=== PATIENT | female | born 1945 | race Caucasian/White ===

== ENCOUNTER 2018-01-29 02:45 | Observation (INO) | payer MEDICARE ==
[~2018-01-29] VITALS: Ht 149.9 cm; Wt 71.7 kg
[2018-01-29] MEDS ORDERED: METOPROLOL TART25 MG PO (02:56)
[2018-01-29] MEDS ORDERED: METFORMIN HCL500 MG PO (02:56)
[2018-01-29] MEDS ORDERED: HYDROCHLOROTHIA25 MG PO (02:56)
[2018-01-29] MEDS ORDERED: CLOPIDOGREL75 MG PO (02:56)
[2018-01-29] MEDS ORDERED: IRBESARTAN150 MG PO (02:56)
[2018-01-29] MEDS ORDERED: ATORVASTATIN CA20 MG PO (02:56)
[2018-01-29 03:40] LABS: BASOPHILS # (AUTO) 0.1 (0.0-0.1); BASOPHILS % 1.1 % (0.0-1.0); EOSINOPHILS # (AUTO) 0.2 (0.0-0.4); HEMOGLOBIN 13.4 g/dL (12.0-16.0); LYMPHOCYTES # (AUTO) 1.7 (1.0-3.2); MEAN CORPUSCULAR HEMOGLOBIN 31.5 pg (28-32); MEAN CORPUSCULAR HGB CONC 34.4 g/dL (31-35); MEAN CORPUSCULAR VOLUME 91.8 fL (81-99); MONOCYTES # (AUTO) 0.6 (0.2-0.8); MONOCYTES % 10.2 % (4.4-11.3); NEUTROPHILS # (AUTO) 2.9 (2.1-6.9); NEUTROPHILS % 54.5 % (38.7-80.0); PLATELET COUNT 302 x10e3/uL (140-360); RED BLOOD COUNT 4.25 x10e6/uL (3.6-5.1)
[2018-01-29 03:45] LABS: INR 1.03; PROTHROMBIN TIME 12.7 seconds (11.9-14.5)
[2018-01-29 03:46] LABS: PARTIAL THROMBOPLASTIN TIME 29.5 seconds (23.8-35.5)
[2018-01-29 03:54] LABS: ALANINE AMINOTRANSFERASE 28 IU/L (0-55); ALBUMIN/GLOBULIN RATIO 1.2 (0.8-2.0); ALKALINE PHOSPHATASE 48 IU/L (40-150); ANION GAP 14.9 mmol/L (8-16); BLOOD UREA NITROGEN 15 mg/dL (7-26); BUN/CREATININE RATIO 20 (6-25); CALCIUM 9.8 mg/dL (8.4-10.2); CARBON DIOXIDE 26 mmol/L (22-29); CHLORIDE 96 mmol/L (98-107); CREATINE KINASE 133 IU/L (29-168); CREATININE, SERUM 0.75 mg/dL (0.57-1.11); EST GLOMERULAR FILTRATION RATE > 60 ML/MIN (60-); GLUCOSE 151 mg/dL (74-118); MAGNESIUM 1.8 MG/DL (1.3-2.1); POTASSIUM 3.9 mmol/L (3.5-5.1); SODIUM 133 mmol/L (136-145)
--- NOTE | 2018-01-29 03:59 | Diagnostic Imaging Report ---
CHEST SINGLE (PORTABLE), 01/29/2018 2:58 AM Technique: CHEST SINGLE (PORTABLE) Comparison: None available. Clinical history: Dizziness Findings: Normal cardiomediastinal silhouette for technique. Aortic calcifications. Suggestion of retrocardiac opacity. No pleural effusion or pneumothorax. Impression: Suggestion of retrocardiac opacity. Recommend upright PA and lateral for better evaluation. Signed by: Dr Elizabeth Coyle MD on 01/29/2018 3:55 AM
[2018-01-29 04:17] LABS: THYROID STIMULATING HORMONE 1.688 uIU/mL (0.350-4.940)
[2018-01-29 04:38] LABS: CLARITY,URINE SL CLOUDY (CLEAR); COLOR,URINE YELLOW (YELLOW)
[2018-01-29 04:39] LABS: BILIRUBIN,URINE NEGATIVE (NEGATIVE); KETONES,URINE NEGATIVE (NEGATIVE); LEUKOCYTE ESTERASE ,URINE NEGATIVE (NEGATIVE); NITRITE,URINE NEGATIVE (NEGATIVE); PROTEIN,URINE DIPSTICK NEGATIVE (NEGATIVE); URINE UROBILINOGEN 0.2 mg/dL (0.2 - 1)
[2018-01-29 04:40] LABS: AMORPHOUS SEDIMENT,URINE MANY (FEW); BACTERIA,URINE FEW /HPF; EPITHELIAL CELLS,URINE RARE /LPF; RBC,URINE 0-5 /HPF (0-5); TRANSITIONAL EPI CELLS,URINE RARE; WBC,URINE (MAN) 0-5 /HPF (0-5)
--- NOTE | 2018-01-29 05:00 | Diagnostic Imaging Report ---
EXAMINATION: Head CT without contrast. HISTORY:Dizziness. COMPARISON:None. TECHNIQUE: Multidetector axial images were obtained from the foramen magnum to the vertex without contrast. The images were reconstructed using brain and bone algorithms. Thin section brain images were reformatted into coronal and sagittal planes. Intravenous contrast: None IMAGE QUALITY: Acceptable. FINDINGS: Skull/scalp: No lytic or blastic. lesions. No surgical changes. Parenchyma: Nonspecific few, scattered patchy white matter hypodensity are likely related to small vessel ischemic changes. No acute hemorrhage, mass or acute major vascular territorial infarct. Arteries: No density suggestive of thrombosis. Dural sinuses: No abnormal density suggestive of thrombosis. Ventricles: No hydrocephalus or displacement. Extra-axial spaces: No abnormal density. Brain volume: Generalized age-related cerebral volume loss. Craniocervical junction: No mass, Chiari malformation, or basilar invagination. Sella: No mass. Paranasal/mastoid sinuses: Imaged portions unremarkable. IMPRESSION: No acute intracranial abnormality. Mild supratentorial white matter microvascular ischemic changes. Generalized age-related cerebral volume loss. Signed by: Dr. Casi Obando M.D. on 01/29/2018 4:56 AM
--- NOTE | 2018-01-29 05:19 | Diagnostic Imaging Report ---
CHEST 2 VIEWS, Technique: CHEST 2 VIEWS Comparison: Same day Clinical history: \S\? RETROCARDIAC OPACITY ON AP CXR, NEEDS PA/LAT \S\[id number] \S\457 DISCUSSION: Normal cardiomediastinal silhouette. Aortic calcifications. No consolidation, edema, pleural effusion or pneumothorax. IMPRESSION: No acute abnormality. Previously questioned retrocardiac opacity with artifactual related to portable technique. Signed by: Dr Elizabeth Coyle MD on 01/29/2018 5:15 AM
[2018-01-29] MEDS ORDERED: FAMOTIDINE 20 MG/2 ML VIAL IV SCH (06:15)
[2018-01-29] MEDS ORDERED: DEXTROSE 50% SYRINGE 50 ML IV PRN (06:15)
--- OUTSIDE RECORDS SUMMARY | 2018-01-29 06:24 | XMS REPORT ---
[facility] Address Unknown Phone Unavailable Care Team Providers Care [employer] Engineer Name Role Phone CYNDY MCADAMS Unavailable Unavailable Problems This patient has no known problems. Allergies, Adverse Reactions, Alerts This patient has no known allergies or adverse reactions. Medications This patient has no known medications. Results Test Description Test Time Test Comments Text Results Atomic Results Result Comments CHEST 2 VIEWS [place] [address] Patient Name: JEAN PAUL KIM MR #: [id number] : 1945 Age/Sex: 72/F Req #: [id number] Adm Physician: Ordered by: CYNDY MCADAMS MD Report #: [id number] Location: ER Room/Bed: Procedure: [id number] DX/CHEST 2 VIEWS Exam Date: 01/29/18 Exam Time: 0458 REPORT STATUS: Signed CHEST 2 VIEWS, Technique: CHEST 2 VIEWS Comparison: Same day Clinical history: S ? RETROCARDIAC OPACITY ON AP CXR, NEEDS PA/LAT DISCUSSION: Normal cardiomediastinal silhouette. Aortic calcifications. No consolidation, edema, pleural effusion or pneumothorax. IMPRESSION: No acute abnormality. Previously questioned retrocardiac opacity with artifactual related to portable technique. Signed by: Dr Kyung Coyle MD on 01/29/2018 5:15 AM Dictated By: KYUNG COYLE MD 4 Transcribed By: KVNG on 01/29/18514 COPY TO: CYNDY MCADAMS MD CHEST SINGLE (PORTABLE) [place] [address] Patient Name: JEAN PAUL KIM MR #: [id number] : 1945 Age/Sex: 72/F Req #: [id number] Adm Physician: Ordered by: CYNDY MCADAMS MD Report #: [id number] Location: ER Room/Bed: Procedure: [id number] DX/CHEST SINGLE (PORTABLE) Exam Date: 01/29/18 Exam Time: 328 REPORT STATUS: Signed CHEST SINGLE ( PORTABLE), 01/29/2018 2:58 AM Technique: CHEST SINGLE (PORTABLE) Comparison: None available. Clinical history: Dizziness Findings: Normal cardiomediastinal silhouette for technique. Aortic calcifications. Suggestion of retrocardiac opacity. No pleural effusion or pneumothorax. Impression: Suggestion of retrocardiac opacity. Recommend upright PA and lateral for better evaluation. Signed by: Dr Kyung Coyle MD on 2017 3:55 AM Dictated By: KYUNG COYLE MD 4 Transcribed By: KVNG on 01/29/18354 COPY TO: CYNDY MCADAMS MD CT BRAIN WO [place] [address] Patient Name: JEAN PAUL KIM MR #: [id number] : 1945 Age/Sex: 72/F Req #: [id number] Adm Physician: Ordered by: CYNDY MCADAMS MD Report #: [id number] Location: Room/Bed: Procedure: [id number] CT/CT BRAIN WO Exam Date: 01/29/18 Exam Time: 323 REPORT STATUS: Signed EXAMINATION: Head CT without contrast. HISTORY:Dizziness. COMPARISON:None. TECHNIQUE: Multidetector axial images were obtained from the foramen magnum to the vertex without contrast. The images were reconstructed using brain and bone algorithms. Thin section brain images were reformatted into coronal and sagittal planes. Intravenous contrast: None IMAGE QUALITY: Acceptable. FINDINGS: Skull/scalp: No lytic or blastic. lesions. No surgical changes. Parenchyma: Nonspecific few, scattered patchy white matter hypodensity are likely related to small vessel ischemic changes. No acute hemorrhage, mass or acute major vascular territorial infarct. Arteries: No density suggestive of thrombosis. Dural sinuses: No abnormal density suggestive of thrombosis. Ventricles: No hydrocephalus or displacement. Extra- axial spaces: No abnormal density. Brain volume: Generalized age- related cerebral volume loss. Craniocervical junction: No mass, Chiari malformation, or basilar invagination. Sella: No mass. Paranasal/ mastoid sinuses: Imaged portions unremarkable. IMPRESSION: No acute intracranial abnormality. Mild supratentorial white matter microvascular ischemic changes. Generalized age-related cerebral volume loss. Signed by: Dr. Casi Obando M.D. on 01/29/2018 4:56 AM Dictated By: CASI OBANDO MD 5 Transcribed By: KVNG on 01/29/18455 COPY TO: CYNDY MCADAMS MD
[2018-01-29 07:59] VITALS: BP 132/68
[2018-01-29] MEDS: INSULIN REGULAR, HUMAN 100 UNIT/1 ML 3ML VIAL SQ SCH ×2 (08:30→11:30)
[2018-01-29 10:03] VITALS: BP 132/68
[2018-01-29 10:15] VITALS: BP 132/68
[2018-01-29 11:21] LABS: CREATINE KINASE 123 IU/L (29-168)
[2018-01-29 11:28] VITALS: BP 129/55
--- NOTE | 2018-01-29 11:29 | Diagnostic Imaging Report ---
Examination: MRI BRAIN WITHOUT CONTRAST History: Dizziness; vertigo; headache. Comparison studies: Head CT dated 01/29/2018. Technique: Sagittal T2; axial DWI, FLAIR, GRE or SWI, T1, Coronal FLAIR. Intravenous contrast: None Findings: Scalp: No abnormal signal. No masses. Bone marrow: Normal in signal intensity. Brain volume: Mild volume loss. Ventricles: No hydrocephalus. Extra-axial spaces: No abnormalities. Parenchyma: There are patchy and confluent areas of T2/FLAIR hyperintensity in the periventricular and subcortical and pontine white matter, nonspecific. No masses, hemorrhage, or acute vascular insults. Suprasellar and sellar region: No abnormalities. Craniocervical junction: No abnormalities. The foramen magnum is patent. No Chiari malformations. Vessels: Normal flow-voids in the arteries and sinuses. Additional findings: Bilateral slitlike lenses. Disc osteophyte complex at C3-C4. IMPRESSION: 1. No acute abnormalities. 2. Unchanged mild chronic microvascular ischemic change and volume loss when compared to prior head CT dated 01/29/2018 and when accounting for differences in technique. Signed by: Dr. Camryn Han M.D. on 01/29/2018 11:26 AM
== END 2018-01-29 14:28 | disposition home or self-care (01) ==
LOC: ER 02:45 → ERHOLD 06:21 → IMCU 07:10
PROVIDERS: ADMIT Internal Medicine; ATTEND Internal Medicine
DX: H81.23 Vestibular neuronitis, bilateral (principal); I10 Essential (primary) hypertension; E11.9 Type 2 diabetes mellitus without complications; I25.10 Atherosclerotic heart disease of native coronary artery without angina pectoris; Z95.5 Presence of coronary angioplasty implant and graft; E78.5 Hyperlipidemia, unspecified
CPT/HCPCS: 36415; 70450; 70551; 71045; 71046; 80053; 81001; 82550; 82553; 82948; 83735; 84443; 84484; 85025; 85610; 85730; 87086; 93005; 93880; 96372; 99284; G0378

== ENCOUNTER 2018-02-18 07:10 | Observation (INO) | payer MEDICARE ==
[~2018-02-18] VITALS: Ht 149.9 cm; Wt 71.2 kg
[~2018-02-18 07:10] MED LIST: ATORVASTATIN CA20 MG PO; CLOPIDOGREL75 MG PO; HYDROCHLOROTHIA25 MG PO; IRBESARTAN150 MG PO; METFORMIN HCL500 MG PO; METOPROLOL TART25 MG PO
[2018-02-18] MEDS ORDERED: NITROGLYCERIN 2% OINT 1 GM PKT TOP STA (07:39)
[2018-02-18] MEDS ORDERED: ASPIRIN 81 MG CHEW TAB PO STA (07:39)
[2018-02-18 07:50] LABS: BASOPHILS # (AUTO) 0.1 (0.0-0.1); EOSINOPHILS # (AUTO) 0.2 (0.0-0.4); EOSINOPHILS % 2.9 % (0.0-6.0); HEMATOCRIT 35.9 % (34.2-44.1); HEMOGLOBIN 12.4 g/dL (12.0-16.0); LYMPHOCYTES # (AUTO) 3.5 (1.0-3.2); MEAN CORPUSCULAR HEMOGLOBIN 31.6 pg (28-32); MEAN CORPUSCULAR HGB CONC 34.5 g/dL (31-35); MEAN CORPUSCULAR VOLUME 91.3 fL (81-99); MONOCYTES # (AUTO) 0.7 (0.2-0.8); MONOCYTES % 10.1 % (4.4-11.3); NEUTROPHILS # (AUTO) 2.7 (2.1-6.9); NEUTROPHILS % 36.7 % (38.7-80.0); PLATELET COUNT 261 x10e3/uL (140-360); RED BLOOD COUNT 3.93 x10e6/uL (3.6-5.1)
[2018-02-18 07:54] LABS: CLARITY,URINE CLEAR (CLEAR); COLOR,URINE YELLOW (YELLOW); LEUKOCYTE ESTERASE ,URINE NEGATIVE (NEGATIVE); NITRITE,URINE NEGATIVE (NEGATIVE); PROTEIN,URINE DIPSTICK NEGATIVE (NEGATIVE)
[2018-02-18 07:55] LABS: BILIRUBIN,URINE NEGATIVE (NEGATIVE); KETONES,URINE TRACE (NEGATIVE); URINE UROBILINOGEN 0.2 mg/dL (0.2 - 1)
[2018-02-18] MEDS ORDERED: LOW DOSE ASPIRI81 MG PO (08:03)
[2018-02-18 08:06] LABS: ALANINE AMINOTRANSFERASE 24 IU/L (0-55); ALBUMIN 3.6 g/dL (3.5-5.0); ALBUMIN/GLOBULIN RATIO 1.3 (0.8-2.0); ALKALINE PHOSPHATASE 48 IU/L (40-150); ANION GAP 11.5 mmol/L (8-16); BACTERIA,URINE FEW /HPF; BLOOD UREA NITROGEN 13 mg/dL (7-26); BUN/CREATININE RATIO 18 (6-25); CALCIUM 9.1 mg/dL (8.4-10.2); CARBON DIOXIDE 28 mmol/L (22-29); CHLORIDE 98 mmol/L (98-107); CREATINE KINASE 117 IU/L (29-168); CREATININE, SERUM 0.72 mg/dL (0.57-1.11); EPITHELIAL CELLS,URINE RARE /LPF; EST GLOMERULAR FILTRATION RATE > 60 ML/MIN (60-); GLUCOSE 124 mg/dL (74-118); POTASSIUM 3.5 mmol/L (3.5-5.1); RBC,URINE 0-5 /HPF (0-5); SODIUM 134 mmol/L (136-145); TRANSITIONAL EPI CELLS,URINE RARE; WBC,URINE (MAN) 21-50 /HPF (0-5)
[2018-02-18 08:08] LABS: INR 1.11; PROTHROMBIN TIME 13.5 seconds (11.9-14.5)
[2018-02-18 08:09] LABS: PARTIAL THROMBOPLASTIN TIME 28.6 seconds (23.8-35.5)
--- NOTE | 2018-02-18 09:12 | Diagnostic Imaging Report ---
PROCEDURE: CHEST SINGLE (PORTABLE) COMPARISON: [facility], DX, CHEST 2 VIEWS, 01/29/2018, 4:58. INDICATIONS: CHEST PAIN FINDINGS: LUNGS: No consolidations or edema. PLEURA: No effusions or pneumothorax. HEART \T\ MEDIASTINUM: The heart is within normal size-limits. There is calcification in the aorta. BONES \T\ SOFT TISSUES: No acute findings. CONCLUSION: No acute thoracic abnormality. Maximo Moreno D.O. Dictated by: Maximo Moreno D.O. on 02/18/2018 at 9:15 Electronically approved by: Maximo Moreno D.O. on 02/18/2018 at 9:15
[2018-02-18 09:22] LABS: ANISOCYTOSIS SLIGHT; EOSINOPHILS % (MANUAL) 3 % (0-7); LYMPHOCYTES % (MANUAL) 54 % (19-48); MONOCYTES % (MANUAL) 9 % (3.4-9.0); NEUTROPHILS % (MANUAL) 23 % (40-74); PLATELET ESTIMATE ADEQUATE; PLATELET MORPHOLOGY COMMENT NORMAL; RBC MORPHOLOGY COMMENT NORMAL
[2018-02-18] MEDS ORDERED: DEXTROSE 50% SYRINGE 50 ML IV PRN (09:30)
[2018-02-18 11:42] VITALS: BP 122/53
[2018-02-18] MEDS ORDERED: MORPHINE SULFATE 2 MG/ML SYR IV PRN ×2 (12:30→17:30)
[2018-02-18] MEDS: INSULIN REGULAR, HUMAN 100 UNIT/1 ML 3ML VIAL SQ SCH ×3 (13:58→20:30)
[2018-02-18 14:23] VITALS: BP 122/53
[2018-02-18 15:21] VITALS: BP 110/40
[2018-02-18 16:33] VITALS: BP 110/40
[2018-02-18] MEDS: METOPROLOL TARTRATE 25 MG TAB PO SCH (17:00)
[2018-02-18 17:12] LABS: CREATINE KINASE 116 IU/L (29-168)
[2018-02-18] MEDS ORDERED: MORPHINE SULFATE INJ 4 MG/ML INJ IV PRN (17:15)
[2018-02-18 20:00] VITALS: BP 135/61
[2018-02-18] MEDS ORDERED: ATORVASTATIN 20 MG TAB PO SCH (21:00)
[2018-02-18] MEDS ORDERED: MELATONIN 5 MG TABLET PO SCH (21:00)
[2018-02-18] MEDS ORDERED: ATORVASTATIN 40 MG TAB PO SCH (21:00)
--- NOTE | 2018-02-18 22:34 | Consultation ---
DATE OF CONSULTATION: February 18, 2018 REASON FOR CONSULTATION: Chest pain. HISTORY OF PRESENT ILLNESS: Ms. Hernandez is a 72-year-old lady with past medical history of hypertension, hypercholesterolemia, borderline type 2 diabetes, coronary artery disease with prior history of myocardial infarction and LAD stenting in 2009, history of left bundle branch block. The patient came in with complaints of chest pain. She reports left parasternal chest dull tightening pain radiating to her left shoulder that lasted 45 minutes this morning, unrelieved with 3 sublingual nitroglycerin and finally went away with morphine. The patient had second pain here in the hospital and again morphine improved the pain. She denies any shortness of breath, diaphoresis, nausea or vomiting. She reports that she has been having pain in this region for the past several months, but nothing this severe and she came to the hospital for further evaluation. EKG reveals left bundle branch block and so far we have one cardiac enzyme with troponin of less than 0.001. PAST MEDICAL HISTORY: 1. Hypertension. 2. Hypercholesterolemia. 3. Borderline diabetes. 4. Coronary artery disease with prior history of LAD stenting in 2009. 5. Left bundle branch block. 6. SAIRA. PAST SURGICAL HISTORY: 1. History of hysterectomy. 2. History of lumbar spine surgery. 3. Abdominal surgery with prior adhesion removal in . 4. History of cataract surgery. 5. Prior history of colonoscopy. FAMILY HISTORY: Mother at 81 with stroke and had heart problems. Father at age 68 with cancer. SOCIAL HISTORY: She is a former smoker, quit 16 years ago. Denies any alcohol or illicit drug use. ALLERGIES: NO KNOWN DRUG ALLERGIES. HOME MEDICATIONS: Aspirin 81 mg daily, atorvastatin 80 mg nightly, Plavix 75 mg daily, hydrochlorothiazide 12.5 mg daily, irbesartan 150 mg daily, metformin 500 mg daily, metoprolol 25 mg b.i.d. REVIEW OF SYSTEMS: GENERAL: Denies any fevers, chills, any weight changes. HEENT: No headaches, visual complaints, sore throat, stuffy nose. RESPIRATORY: Denies any pleuritic component to the chest pain, but does report chronic exertional dyspnea class 3. CARDIOVASCULAR: As per HPI. Denies any orthopnea, PND, palpitations, syncope or near syncope. GI: Denies any abdominal pain or bloating. No nausea or vomiting. No bright red blood, melena, hematemesis. : Denies dysuria. pyuria or change in urinary frequency. MUSCULOSKELETAL: Positive for tenderness in the left parasternal region as well as lower back pain. HEME: No easy bruising or bleeding. ID: No known infectious issues. NEUROLOGIC: Denies any focal weakness, numbness, tingling, seizures, headache, TIA or stroke. PSYCHIATRIC: Positive for anxiety, but no depression. The remainder of the review of systems negative other than outlined. PHYSICAL EXAMINATION VITAL SIGNS: Height 59 inches, weight 157 pounds, BMI 31.7, temperature 98.6, pulse 70, respiratory rate 17, blood pressure 114/55, O2 sat 96% on room air. GENERAL: This is a well-nourished, well-developed lady who is currently in no apparent distress. HEENT: Pupils equal, round and react to light. Extraocular movements are intact. Oropharynx is clear. NECK: No elevation in jugular venous pulsation. There is no carotid bruit. CARDIOVASCULAR: Regular rate and rhythm. Normal S1, S2. Soft 1/6 systolic murmur in the left lower sternal border. LUNGS: Clear to auscultation bilaterally with good air entry. There is chest wall tenderness in the left parasternal region as well as the left shoulder region. ABDOMEN: Soft, nontender, obese. Normoactive bowel sounds. There is no hepatosplenomegaly. BACK: No costovertebral angle tenderness. EXTREMITIES: Warm with trace edema and diminished pedal pulses. NEUROLOGIC: Cranial nerves II-XII intact. Strength is 5/5. Grossly nonfocal. PSYCH: Normal, fluent speech. Appropriate affect. No anxiety or delusions. LABORATORY DATA: White count of 7.2, hemoglobin 12.4, hematocrit 35.9, platelets 261,000, sodium 134, potassium 3.5, chloride 98, bicarb 28, BUN 13, creatinine 0.72, glucose of 124, calcium 9.1, AST 22, ALT 24, alkaline phosphatase 48, total protein 6.5, albumin 3.6, BNP 71.9, troponin less than 0.0101 times 2 spaced out over 9 hours. INR is 1.11. UA shows 21-50 white cells. Chest x-ray is unremarkable. EKG reveals normal sinus rhythm, left bundle branch block. DIAGNOSES 1. Chest pain with very wide differential diagnosis. 2. Coronary artery disease. 3. History of myocardial infarction. Stent in coronary artery in 2009. 4. Hypertension. 5. Borderline diabetes. 6. Hyperlipidemia. 7. Left bundle branch block, abnormal EKG. PLAN/RECOMMENDATIONS: 1. From a cardiovascular standpoint, the patient's presenting symptoms are with mixed features, but largely atypical for angina. 2. She has so far 2 negative cardiac biomarkers that are strongly negative. 3. Will check echocardiogram to evaluate her left ventricular function. 4. Proceed with pharmacologic nuclear stress test tomorrow on account of her presence of left bundle branch block as TNP would not be a reliable stress testing modality. 5. N.p.o. after midnight. 6. Will check abdominal ultrasound to make sure there is no cholelithiasis or cholecystitis findings. 7. Will continue to follow this patient with you. Thank you for this referral. Job#: [id number]
[2018-02-19] VITALS: BP 144/65
[2018-02-19 04:00] VITALS: BP 139/60
[2018-02-19 06:35] LABS: CHOL/HDL RATIO 2.5 (3.0-3.6); CHOLESTEROL 132 MD/DL (0-199); CREATINE KINASE 102 IU/L (29-168); HDL CHOLESTEROL 53 MG/DL (40-60); LDL CHOLESTEROL 72 MG/DL (60-130); TRIGLYCERIDES 37 MG/DL (0-149)
[2018-02-19] MEDS: INSULIN REGULAR, HUMAN 100 UNIT/1 ML 3ML VIAL SQ SCH ×2 (07:30→11:30)
[2018-02-19 07:49] VITALS: BP 138/61
[2018-02-19] MEDS ORDERED: METFORMIN HCL 500 MG TAB PO SCH (08:00)
[2018-02-19] MEDS ORDERED: ASPIRIN 325 MG TAB EC PO SCH ×2 (09:00)
[2018-02-19] MEDS: METOPROLOL TARTRATE 25 MG TAB PO SCH (09:00)
[2018-02-19] MEDS ORDERED: CLOPIDOGREL BISULFATE 75 MG TAB PO SCH (09:00)
[2018-02-19] MEDS ORDERED: ASPIRIN 81 MG ENTERIC COATED PO SCH (09:00)
[2018-02-19 10:29] VITALS: BP 138/61
--- NOTE | 2018-02-19 11:03 | Diagnostic Imaging Report ---
PROCEDURE:ABDOMINAL ULTRASOUND COMPARISON:None. INDICATIONS:Abdominal pain TECHNIQUE: Grayscale color Doppler ultrasound abdomen FINDINGS: Portion of the inferior vena cava and abdominal aorta are of normal caliber. Infrarenal aortic atherosclerosis. Normal pancreas. The tail is obscured. Right liver span 13 cm. Normal echogenicity; smooth margin. 1.5 x 1.3 x 1.3 cm cyst, containing a single thin septation, within the right lobe. Portal vein diameter 0.9 cm; normal flow direction. Normal gallbladder. The wall thickness 0.3 cm. Common bile that diameter 0.3 cm. Right kidney: 8.7 x 3.7 x 4.8 cm. Left kidney: 9.4 x 4.2 x 4.1 cm. Both kidneys are normal. Spleen length is 7 cm. No ascites. CONCLUSION: 1. No conspicuous etiology for abdominal pain. 2. Simple right renal cyst. Dictated by: Paxton Bennett M.D. on 02/19/2018 at 11:07 Electronically approved by: Paxton Bennett M.D. on 02/19/2018 at 11:07
[2018-02-19] MEDS ORDERED: REGADENOSON 0.4 MG/5 ML SYR IV ONE (11:20)
--- NOTE | 2018-02-19 16:15 | Cardiology Report ---
DATE OF STUDY: February 19, 2018 LEXISCAN NUCLEAR STRESS TEST INDICATION FOR STUDY: Chest pain, history of coronary artery disease and underlying left bundle branch block. TECHNICAL DETAILS: After risks, benefits, pros and cons of this Lexiscan nuclear stress test were explained, the patient agreed to proceed. The patient was brought down to the nuclear lab where she received an 11-mCi dose of technetium 99 tetrofosmin intravenously, and after 35 minutes SPECT myocardial perfusion imaging was performed. Afterwards, 12-lead EKG monitoring and blood pressure monitor were obtained, and the patient was brought to the stress lab. She received a dose of Lexiscan 0.4 mg intravenously followed by a 32-mCi dose of technetium 99 tetrofosmin intravenously. Resting heart rate went from a baseline of 69 beats per minute to a maximum of 101 beats per minute, and blood pressure went from a baseline of 132/86 to 121/68, which is an appropriate hemodynamic response. Underlying EKG revealed a left bundle branch block, and there were no ischemic EKG changes or symptoms. Afterwards, patient was then taken to the SPECT camera for stress myocardial perfusion imaging. FINDINGS 1. Resting myocardial perfusion imaging reveals normal tracer uptake and no scintigraphic areas of ischemia. 2. The stress myocardial perfusion imaging reveals a very small focal mid anterior wall decreased count, which is rather small to be vascular territorial in nature, may be artefact. 3. The following gated measurements were obtained: End-diastolic volume 41 mL, end-systolic volume 9 mL, calculated left ventricular ejection fraction is 81% with mild septal dyskinesis secondary to left bundle branch block. CONCLUSIONS 1. Probably normal myocardial perfusion imaging study revealing a very, very small focal mid anterior wall perfusion defect, likely artefactual. 1. Left ventricular ejection fraction is greater than 55% with left bundle branch block-appearing septal wall motion. 2. Overall finding of this study is likely patient services representative of a low-risk nuclear stress test. 3. Findings of this study explained to the patient including limitations. Job#: [id number] EV cc:LOBITO PETTY
== END 2018-02-19 14:57 | disposition home or self-care (01) ==
LOC: ER 07:10 → ERHOLD 09:16 → IMCU 11:06
PROVIDERS: ADMIT Internal Medicine; ATTEND Internal Medicine
DX: R07.2 Precordial pain (principal); E11.9 Type 2 diabetes mellitus without complications; I10 Essential (primary) hypertension; Z79.84 Long term (current) use of oral hypoglycemic drugs; I25.10 Atherosclerotic heart disease of native coronary artery without angina pectoris; Z95.5 Presence of coronary angioplasty implant and graft; I25.2 Old myocardial infarction; E78.5 Hyperlipidemia, unspecified; I44.7 Left bundle-branch block, unspecified
CPT/HCPCS: 36415 ×2; 71045; 76700; 78452; 80053; 80061; 81001; 82550 ×2; 82553 ×2; 82948 ×2; 83880; 84484 ×2; 85025; 85610; 85730; 93005; 93017; 99284; A9502; G0378 ×2; J2270

== ENCOUNTER 2021-07-31 13:56 | Inpatient (IN) | payer MEDICARE ==
[2021-07-31] VITALS (8 sets, daily range): BP systolic 115–152; BP diastolic 52–108
[~2021-07-31] VITALS: Ht 162.6 cm; Wt 70.0 kg
[~2021-07-31 13:56] MED LIST changes: +LOW DOSE ASPIRI81 MG PO
[2021-07-31 14:29] LABS: BASOPHILS # (AUTO) 0.1 (0.0-0.1); BASOPHILS % 0.5 % (0.0-1.0); EOSINOPHILS # (AUTO) 0.3 (0.0-0.4); EOSINOPHILS % 2.7 % (0.0-6.0); HEMATOCRIT 34.9 % (34.2-44.1); HEMOGLOBIN 12.3 g/dL (12.0-16.0); LYMPHOCYTES # (AUTO) 1.7 (1.0-3.2); LYMPHOCYTES % 17.9 % (18.0-39.1); MEAN CORPUSCULAR HEMOGLOBIN 31.1 pg (28-32); MEAN CORPUSCULAR HGB CONC 35.2 g/dL (31-35); MEAN CORPUSCULAR VOLUME 88.4 fL (81-99); MONOCYTES # (AUTO) 1.5 (0.2-0.8); MONOCYTES % 15.2 % (4.4-11.3); NEUTROPHILS # (AUTO) 6.1 (2.1-6.9); NEUTROPHILS % 63.1 % (38.7-80.0); PLATELET COUNT 306 x10e3/uL (140-360); RED BLOOD COUNT 3.95 x10e6/uL (3.6-5.1)
[2021-07-31 14:33] LABS: INR 0.87; PROTHROMBIN TIME 12.5 seconds (11.9-14.5)
[2021-07-31 14:34] LABS: PARTIAL THROMBOPLASTIN TIME 29.9 seconds (23.8-35.5)
[2021-07-31] MEDS ORDERED: SODIUM CHLORIDE 0.9% 1000ML 500 ML IV ONE (14:35)
[2021-07-31 14:41] LABS: ALBUMIN 3.6 g/dL (3.5-5.0); ANION GAP 19.7 mmol/L (8-16); CALCIUM 8.9 mg/dL (8.4-10.2); CREATININE, SERUM 0.63 mg/dL (0.57-1.11); POTASSIUM 3.7 mmol/L (3.5-5.1)
[2021-07-31] MEDS ORDERED: SODIUM CHLORIDE 3% 100 ML IV ONE (14:45)
[2021-07-31] MEDS ORDERED: SODIUM CHLORIDE 0.9% 1000ML 1,000 ML IV SCH (14:45)
[2021-07-31 14:48] LABS: CREATINE KINASE MB 6.6 ng/mL (0-5.0)
[2021-07-31] MEDS ORDERED: IOPAMIDOL 370 MG/ML 200 ML INFUS..BTL INJ ONE (15:08)
[2021-07-31] MEDS ORDERED: SODIUM CHLORIDE 0.9% 50ML 0 ML ONE (15:08)
[2021-07-31 15:50] LABS: COLOR,URINE STRAW (YELLOW); KETONES,URINE NEGATIVE (NEGATIVE); LEUKOCYTE ESTERASE ,URINE SMALL (NEGATIVE); NITRITE,URINE NEGATIVE (NEGATIVE); PROTEIN,URINE DIPSTICK 1+ (NEGATIVE); URINE UROBILINOGEN 0.2 mg/dL (0.2 - 1)
[2021-07-31 15:51] LABS: CLARITY,URINE SL CLOUDY (CLEAR)
[2021-07-31] MEDS ORDERED: SODIUM CHLORIDE FLUSH 10 ML SYR INJ PRN (16:00)
[2021-07-31 16:07] LABS: BACTERIA,URINE FEW /HPF; WBC,URINE (MAN) 0-5 /HPF (0-5)
[2021-07-31] MEDS: CEFTRIAXONE 1 GM in SODIUM CHLORIDE 0.9% 50ML 50 ML IV SCH (16:21)
[2021-07-31] MEDS: ALBUTEROL/IPRATROPIUM 3 ML NEB NEB SCH ×2 (16:40→23:20)
[2021-07-31 17:12] LABS: CALCIUM 8.3 mg/dL (8.4-10.2); CREATININE, SERUM 0.58 mg/dL (0.57-1.11)
[2021-07-31 17:30] LABS: CREATINE KINASE MB 6.9 ng/mL (0-5.0)
[2021-07-31] MEDS ORDERED: ONDANSETRON HCL INJ 2MG/ML 2ML 2 MG/ML VIAL IV PRN (17:45)
[2021-07-31] MEDS ORDERED: POTASSIUM CHLORIDE 10MEQ EA PO ONE (18:00)
[2021-07-31] MEDS ORDERED: DEXTROSE 50% SYRINGE 50 ML IV PRN (18:00)
[2021-07-31] MEDS ORDERED: KCL 20 MEQ PACKET/ ORAL SOLN PO NR (18:45)
[2021-07-31 20:57] LABS: ABG PCO2 49 mmHg (35-45); ABG PH 7.43 (7.35-7.45)
[2021-07-31 20:58] LABS: ABG HCO3 32 mmol/L (22-26); ABG PO2 18 mmHg (80-105); ABG TCO2 34
[2021-07-31] MEDS: ATORVASTATIN 40 MG TAB PO SCH (21:57)
[2021-07-31] MEDS: INSULIN REGULAR, HUMAN 100 UNIT/1 ML SQ SCH (22:01)
[2021-07-31] MEDS: ACETAMINOPHEN 325 MG TAB PO PRN (22:52)
[2021-08-01] VITALS (23 sets, daily range): BP systolic 26–172; BP diastolic 29–134
[2021-08-01] MEDS: ALBUTEROL/IPRATROPIUM 3 ML NEB NEB SCH ×6 (03:25→23:30)
[2021-08-01 04:59] LABS: BASOPHILS % 0.5 % (0.0-1.0); EOSINOPHILS # (AUTO) 0.3 (0.0-0.4); EOSINOPHILS % 3.2 % (0.0-6.0); HEMATOCRIT 28.8 % (34.2-44.1); HEMOGLOBIN 10.1 g/dL (12.0-16.0); LYMPHOCYTES # (AUTO) 2.4 (1.0-3.2); LYMPHOCYTES % 27.4 % (18.0-39.1); MEAN CORPUSCULAR HEMOGLOBIN 30.7 pg (28-32); MEAN CORPUSCULAR HGB CONC 35.1 g/dL (31-35); MEAN CORPUSCULAR VOLUME 87.5 fL (81-99); MONOCYTES # (AUTO) 1.4 (0.2-0.8); MONOCYTES % 16.2 % (4.4-11.3); NEUTROPHILS # (AUTO) 4.6 (2.1-6.9); NEUTROPHILS % 52.2 % (38.7-80.0); PLATELET COUNT 261 x10e3/uL (140-360); RED BLOOD COUNT 3.29 x10e6/uL (3.6-5.1)
[2021-08-01 05:28] LABS: ALBUMIN 2.9 g/dL (3.5-5.0); ANION GAP 13.4 mmol/L (8-16); CALCIUM 7.8 mg/dL (8.4-10.2); CREATININE, SERUM 0.51 mg/dL (0.57-1.11); POTASSIUM 3.4 mmol/L (3.5-5.1)
[2021-08-01] MEDS: CEFTRIAXONE 1 GM in SODIUM CHLORIDE 0.9% 50ML 50 ML IV SCH ×2 (06:00→17:19)
[2021-08-01 07:51] LABS: CREATINE KINASE MB 3.5 ng/mL (0-5.0)
[2021-08-01] MEDS: INSULIN REGULAR, HUMAN 100 UNIT/1 ML SQ SCH ×4 (08:30→20:48)
[2021-08-01] MEDS: METOPROLOL TARTRATE 25 MG TAB PO SCH ×2 (08:30→17:19)
[2021-08-01] MEDS: IRBESARTAN 150 MG TAB PO SCH (08:30)
[2021-08-01] MEDS: CLOPIDOGREL BISULFATE 75 MG TAB PO SCH (08:30)
[2021-08-01] MEDS: ASPIRIN 81 MG ENTERIC COATED PO SCH (08:30)
[2021-08-01] MEDS ORDERED: SODIUM CHLORIDE 3% 200 ML IV ONE (09:00)
[2021-08-01] MEDS: LORAZEPAM INJ 2 MG/ML VIAL IV PRN (10:11)
[2021-08-01] MEDS: CLONIDINE HCL 0.1 MG TAB PO PRN (17:29)
[2021-08-01] MEDS ORDERED: ZIPRASIDONE 20 MG VIAL IM STA (17:53)
[2021-08-01 18:09] LABS: OSMOLALITY,SERUM OSMOMETER 234 mOsmol/kg (280-301)
[2021-08-01] MEDS ORDERED: SODIUM CHLORIDE 0.9% 250ML 250 ML ONE (18:10)
[2021-08-01] MEDS: ATORVASTATIN 40 MG TAB PO SCH (20:50)
[2021-08-01] MEDS: HEPARIN SOD (PORCINE) 5,000 UNIT/ML VIAL SC SCH (21:00)
[2021-08-01 23:30] LABS: ANION GAP 13.6 mmol/L (8-16); CALCIUM 7.9 mg/dL (8.4-10.2); CREATININE, SERUM 0.47 mg/dL (0.57-1.11); POTASSIUM 3.6 mmol/L (3.5-5.1)
[2021-08-02] VITALS (25 sets, daily range): BP systolic 133–176; BP diastolic 45–96
[2021-08-02] MEDS: LORAZEPAM INJ 2 MG/ML VIAL IV PRN ×2 (03:59→09:41)
[2021-08-02] MEDS: ALBUTEROL/IPRATROPIUM 3 ML NEB NEB SCH ×6 (04:25→22:40)
[2021-08-02 06:14] LABS: BASOPHILS # (AUTO) 0.1 (0.0-0.1); BASOPHILS % 0.6 % (0.0-1.0); EOSINOPHILS # (AUTO) 0.3 (0.0-0.4); EOSINOPHILS % 2.1 % (0.0-6.0); HEMATOCRIT 32.7 % (34.2-44.1); HEMOGLOBIN 11.3 g/dL (12.0-16.0); LYMPHOCYTES # (AUTO) 1.7 (1.0-3.2); LYMPHOCYTES % 13.9 % (18.0-39.1); MEAN CORPUSCULAR HEMOGLOBIN 31.3 pg (28-32); MEAN CORPUSCULAR HGB CONC 34.6 g/dL (31-35); MEAN CORPUSCULAR VOLUME 90.6 fL (81-99); MONOCYTES # (AUTO) 1.7 (0.2-0.8); NEUTROPHILS # (AUTO) 8.5 (2.1-6.9); NEUTROPHILS % 68.8 % (38.7-80.0); PLATELET COUNT 314 x10e3/uL (140-360); RED BLOOD COUNT 3.61 x10e6/uL (3.6-5.1); RED CELL DISTRIBUTION WIDTH 12.6 % (11.7-14.4)
[2021-08-02] MEDS: CEFTRIAXONE 1 GM in SODIUM CHLORIDE 0.9% 50ML 50 ML IV SCH ×2 (06:25→16:12)
[2021-08-02 06:27] LABS: ANION GAP 14.5 mmol/L (8-16); BLOOD UREA NITROGEN < 5 mg/dL (7-26); CARBON DIOXIDE 25 mmol/L (22-29); CHLORIDE 89 mmol/L (98-107); CREATININE, SERUM 0.51 mg/dL (0.57-1.11); EST GLOMERULAR FILTRATION RATE 118 ML/MIN (60-); GLUCOSE 124 mg/dL (74-118); POTASSIUM 3.5 mmol/L (3.5-5.1); SODIUM 125 mmol/L (136-145)
[2021-08-02 06:28] LABS: BUN/CREATININE RATIO 10 (6-25)
[2021-08-02] MEDS: INSULIN REGULAR, HUMAN 100 UNIT/1 ML SQ SCH ×4 (07:30→21:00)
[2021-08-02] MEDS: METOPROLOL TARTRATE 25 MG TAB PO SCH ×2 (08:29→16:11)
[2021-08-02] MEDS: CLOPIDOGREL BISULFATE 75 MG TAB PO SCH (08:29)
[2021-08-02] MEDS: ASPIRIN 81 MG ENTERIC COATED PO SCH (08:29)
[2021-08-02] MEDS: HEPARIN SOD (PORCINE) 5,000 UNIT/ML VIAL SC SCH ×2 (08:30→22:14)
[2021-08-02] MEDS: IRBESARTAN 150 MG TAB PO SCH (08:31)
[2021-08-02] MEDS ORDERED: NYSTATIN 15 GM POWDER UD BTL TOP PRN (13:00)
[2021-08-02] MEDS: NYSTATIN 15 GM POWDER UD BTL TOP SCH (14:47)
[2021-08-02] MEDS: RISPERIDONE 0.5 MG TAB PO SCH (16:11)
[2021-08-02] MEDS: SODIUM CHLORIDE 1 GM TAB PO SCH (16:12)
[2021-08-02] MEDS: ACETAMINOPHEN 325 MG TAB PO PRN (18:29)
[2021-08-02] MEDS: ATORVASTATIN 40 MG TAB PO SCH (22:00)
[2021-08-02] MEDS: ESCITALOPRAM OXALATE 10 MG TAB PO SCH (22:00)
[2021-08-03] VITALS (15 sets, daily range): BP systolic 116–167; BP diastolic 57–117
[2021-08-03] MEDS: ALBUTEROL/IPRATROPIUM 3 ML NEB NEB SCH ×6 (02:52→22:50)
[2021-08-03] MEDS: CLONIDINE HCL 0.1 MG TAB PO PRN (04:24)
[2021-08-03 05:43] LABS: ALBUMIN 2.9 g/dL (3.5-5.0); ALBUMIN/GLOBULIN RATIO 0.9 (0.8-2.0); ANION GAP 14.2 mmol/L (8-16); CALCIUM 8.1 mg/dL (8.4-10.2); CREATININE, SERUM 0.51 mg/dL (0.57-1.11); POTASSIUM 3.2 mmol/L (3.5-5.1)
[2021-08-03] MEDS: CEFTRIAXONE 1 GM in SODIUM CHLORIDE 0.9% 50ML 50 ML IV SCH ×2 (06:15→18:36)
[2021-08-03 06:24] LABS: BASOPHILS # (AUTO) 0.1 (0.0-0.1); BASOPHILS % 0.6 % (0.0-1.0); EOSINOPHILS # (AUTO) 0.3 (0.0-0.4); EOSINOPHILS % 2.6 % (0.0-6.0); HEMATOCRIT 31.7 % (34.2-44.1); HEMOGLOBIN 10.6 g/dL (12.0-16.0); LYMPHOCYTES % 18.8 % (18.0-39.1); MEAN CORPUSCULAR HEMOGLOBIN 30.6 pg (28-32); MEAN CORPUSCULAR HGB CONC 33.4 g/dL (31-35); MEAN CORPUSCULAR VOLUME 91.6 fL (81-99); MONOCYTES # (AUTO) 1.4 (0.2-0.8); MONOCYTES % 13.6 % (4.4-11.3); NEUTROPHILS # (AUTO) 6.8 (2.1-6.9); NEUTROPHILS % 63.8 % (38.7-80.0); PLATELET COUNT 300 x10e3/uL (140-360); RED BLOOD COUNT 3.46 x10e6/uL (3.6-5.1); RED CELL DISTRIBUTION WIDTH 12.7 % (11.7-14.4)
[2021-08-03] MEDS: INSULIN REGULAR, HUMAN 100 UNIT/1 ML SQ SCH ×4 (07:30→20:54)
[2021-08-03] MEDS ORDERED: ALBUTEROL/IPRATROPIUM 3 ML NEB NEB ONE (08:30)
[2021-08-03] MEDS: RISPERIDONE 0.5 MG TAB PO SCH (09:00)
[2021-08-03] MEDS: SODIUM CHLORIDE 1 GM TAB PO SCH ×2 (09:17→16:51)
[2021-08-03] MEDS: HEPARIN SOD (PORCINE) 5,000 UNIT/ML VIAL SC SCH (09:17)
[2021-08-03] MEDS: METOPROLOL TARTRATE 25 MG TAB PO SCH ×2 (09:18→16:51)
[2021-08-03] MEDS: CLOPIDOGREL BISULFATE 75 MG TAB PO SCH (09:18)
[2021-08-03] MEDS: IRBESARTAN 150 MG TAB PO SCH (09:40)
[2021-08-03] MEDS: NYSTATIN 15 GM POWDER UD BTL TOP SCH (10:10)
[2021-08-03] MEDS ORDERED: SODIUM CHLORIDE 0.9% 1000ML 1,000 ML ONE (11:15)
[2021-08-03] MEDS: ASPIRIN 81 MG CHEW TAB PO SCH (12:13)
[2021-08-03 13:44] LABS: ABG HCO3 32 mmol/L (22-26); ABG PCO2 66 mmHg (35-45); ABG PO2 114 mmHg (80-105); ABG TCO2 34
[2021-08-03] MEDS: KCL 20 MEQ PACKET/ ORAL SOLN PO SCH ×3 (14:44→16:51)
[2021-08-03] MEDS: ESCITALOPRAM OXALATE 10 MG TAB PO SCH (20:52)
[2021-08-03] MEDS: ATORVASTATIN 40 MG TAB PO SCH (20:53)
[2021-08-04] VITALS (25 sets, daily range): BP systolic 112–181; BP diastolic 56–112
[2021-08-04] MEDS: CLONIDINE HCL 0.1 MG TAB PO PRN ×2 (00:30→12:15)
[2021-08-04] MEDS: ALBUTEROL/IPRATROPIUM 3 ML NEB NEB SCH ×6 (03:40→22:54)
[2021-08-04] MEDS: CEFTRIAXONE 1 GM in SODIUM CHLORIDE 0.9% 50ML 50 ML IV SCH ×2 (05:29→18:22)
[2021-08-04 05:45] LABS: BASOPHILS # (AUTO) 0.1 (0.0-0.1); BASOPHILS % 0.6 % (0.0-1.0); EOSINOPHILS # (AUTO) 0.2 (0.0-0.4); EOSINOPHILS % 1.6 % (0.0-6.0); HEMATOCRIT 33.2 % (34.2-44.1); HEMOGLOBIN 10.8 g/dL (12.0-16.0); LYMPHOCYTES # (AUTO) 1.4 (1.0-3.2); LYMPHOCYTES % 12.7 % (18.0-39.1); MEAN CORPUSCULAR HEMOGLOBIN 30.3 pg (28-32); MEAN CORPUSCULAR HGB CONC 32.5 g/dL (31-35); MEAN CORPUSCULAR VOLUME 93.3 fL (81-99); MONOCYTES # (AUTO) 1.5 (0.2-0.8); MONOCYTES % 13.6 % (4.4-11.3); NEUTROPHILS # (AUTO) 7.9 (2.1-6.9); NEUTROPHILS % 70.9 % (38.7-80.0); PLATELET COUNT 313 x10e3/uL (140-360); RED BLOOD COUNT 3.56 x10e6/uL (3.6-5.1); RED CELL DISTRIBUTION WIDTH 12.7 % (11.7-14.4)
[2021-08-04 06:12] LABS: ALBUMIN 2.9 g/dL (3.5-5.0); ALBUMIN/GLOBULIN RATIO 0.9 (0.8-2.0); ANION GAP 13.1 mmol/L (8-16); CALCIUM 8.7 mg/dL (8.4-10.2); CREATININE, SERUM 0.53 mg/dL (0.57-1.11); POTASSIUM 4.1 mmol/L (3.5-5.1)
[2021-08-04] MEDS: IRBESARTAN 150 MG TAB PO SCH (08:30)
[2021-08-04] MEDS: ASPIRIN 81 MG CHEW TAB PO SCH (08:30)
[2021-08-04] MEDS: METOPROLOL TARTRATE 25 MG TAB PO SCH ×3 (08:31→21:10)
[2021-08-04] MEDS: SODIUM CHLORIDE 1 GM TAB PO SCH ×2 (08:31→18:21)
[2021-08-04] MEDS: CLOPIDOGREL BISULFATE 75 MG TAB PO SCH (08:31)
[2021-08-04] MEDS: NYSTATIN 15 GM POWDER UD BTL TOP SCH (08:31)
[2021-08-04] MEDS: INSULIN REGULAR, HUMAN 100 UNIT/1 ML SQ SCH ×4 (09:21→20:03)
[2021-08-04] MEDS: HEPARIN SOD (PORCINE) 5,000 UNIT/ML VIAL SC SCH ×2 (10:49→20:02)
[2021-08-04] MEDS: ACETAMINOPHEN 325 MG TAB PO PRN (13:44)
[2021-08-04] MEDS: ESCITALOPRAM OXALATE 10 MG TAB PO SCH (20:00)
[2021-08-04] MEDS: ATORVASTATIN 40 MG TAB PO SCH (20:00)
[2021-08-05] VITALS (21 sets, daily range): BP systolic 125–176; BP diastolic 52–88
[2021-08-05] MEDS: ALBUTEROL/IPRATROPIUM 3 ML NEB NEB SCH ×6 (02:28→23:15)
[2021-08-05] MEDS: CEFTRIAXONE 1 GM in SODIUM CHLORIDE 0.9% 50ML 50 ML IV SCH ×2 (06:12→17:15)
[2021-08-05] MEDS: METOPROLOL TARTRATE 25 MG TAB PO SCH ×3 (06:13→21:22)
[2021-08-05] MEDS: INSULIN REGULAR, HUMAN 100 UNIT/1 ML SQ SCH ×4 (07:36→21:21)
[2021-08-05] MEDS: NYSTATIN 15 GM POWDER UD BTL TOP SCH (07:44)
[2021-08-05] MEDS: IRBESARTAN 150 MG TAB PO SCH (07:50)
[2021-08-05] MEDS: SODIUM CHLORIDE 1 GM TAB PO SCH ×2 (07:50→17:15)
[2021-08-05] MEDS: CLOPIDOGREL BISULFATE 75 MG TAB PO SCH (07:50)
[2021-08-05] MEDS: ASPIRIN 81 MG CHEW TAB PO SCH (07:50)
[2021-08-05] MEDS: HEPARIN SOD (PORCINE) 5,000 UNIT/ML VIAL SC SCH ×2 (07:51→21:21)
[2021-08-05 10:19] LABS: ANION GAP 12.8 mmol/L (8-16); CALCIUM 8.9 mg/dL (8.4-10.2); CREATININE, SERUM 0.54 mg/dL (0.57-1.11); POTASSIUM 3.8 mmol/L (3.5-5.1)
[2021-08-05] MEDS: ESCITALOPRAM OXALATE 10 MG TAB PO SCH (21:19)
[2021-08-05] MEDS: ATORVASTATIN 40 MG TAB PO SCH (21:19)
[2021-08-05] MEDS: CLONIDINE HCL 0.1 MG TAB PO PRN (22:19)
[2021-08-06] VITALS (20 sets, daily range): BP systolic 104–177; BP diastolic 55–106
[2021-08-06] MEDS: ALBUTEROL/IPRATROPIUM 3 ML NEB NEB SCH ×6 (00:50→19:10)
[2021-08-06 05:50] LABS: ANION GAP 11.8 mmol/L (8-16); CALCIUM 9.5 mg/dL (8.4-10.2); CREATININE, SERUM 0.54 mg/dL (0.57-1.11); POTASSIUM 3.8 mmol/L (3.5-5.1)
[2021-08-06] MEDS: CEFTRIAXONE 1 GM in SODIUM CHLORIDE 0.9% 50ML 50 ML IV SCH ×2 (07:00→17:25)
[2021-08-06] MEDS: METOPROLOL TARTRATE 25 MG TAB PO SCH ×3 (07:00→22:07)
[2021-08-06] MEDS: INSULIN REGULAR, HUMAN 100 UNIT/1 ML SQ SCH ×4 (07:30→22:26)
[2021-08-06] MEDS: SODIUM CHLORIDE 1 GM TAB PO SCH ×2 (09:00→17:25)
[2021-08-06] MEDS: CLOPIDOGREL BISULFATE 75 MG TAB PO SCH (09:00)
[2021-08-06] MEDS: IRBESARTAN 150 MG TAB PO SCH (09:00)
[2021-08-06] MEDS: HEPARIN SOD (PORCINE) 5,000 UNIT/ML VIAL SC SCH ×2 (09:00→22:18)
[2021-08-06] MEDS: ASPIRIN 81 MG CHEW TAB PO SCH (09:00)
[2021-08-06] MEDS: NYSTATIN 15 GM POWDER UD BTL TOP SCH (11:09)
[2021-08-06] MEDS: ESCITALOPRAM OXALATE 10 MG TAB PO SCH (22:07)
[2021-08-06] MEDS: ATORVASTATIN 40 MG TAB PO SCH (22:07)
[2021-08-07] VITALS (25 sets, daily range): BP systolic 118–164; BP diastolic 51–100
[2021-08-07] MEDS: ALBUTEROL/IPRATROPIUM 3 ML NEB NEB SCH ×6 (04:25→22:40)
[2021-08-07] MEDS: METOPROLOL TARTRATE 25 MG TAB PO SCH ×3 (06:37→21:55)
[2021-08-07] MEDS: CEFTRIAXONE 1 GM in SODIUM CHLORIDE 0.9% 50ML 50 ML IV SCH ×2 (06:37→17:21)
[2021-08-07 06:40] LABS: BASOPHILS # (AUTO) 0.1 (0.0-0.1); BASOPHILS % 0.9 % (0.0-1.0); EOSINOPHILS # (AUTO) 0.4 (0.0-0.4); HEMOGLOBIN 10.5 g/dL (12.0-16.0); LYMPHOCYTES # (AUTO) 1.5 (1.0-3.2); LYMPHOCYTES % 14.9 % (18.0-39.1); MEAN CORPUSCULAR HEMOGLOBIN 30.7 pg (28-32); MEAN CORPUSCULAR HGB CONC 32.8 g/dL (31-35); MEAN CORPUSCULAR VOLUME 93.6 fL (81-99); MONOCYTES # (AUTO) 1.6 (0.2-0.8); MONOCYTES % 16.2 % (4.4-11.3); NEUTROPHILS # (AUTO) 6.3 (2.1-6.9); NEUTROPHILS % 63.7 % (38.7-80.0); PLATELET COUNT 366 x10e3/uL (140-360); RED BLOOD COUNT 3.42 x10e6/uL (3.6-5.1); RED CELL DISTRIBUTION WIDTH 13.2 % (11.7-14.4)
[2021-08-07 07:18] LABS: ALBUMIN 2.4 g/dL (3.5-5.0); ALBUMIN/GLOBULIN RATIO 0.7 (0.8-2.0); ANION GAP 12.6 mmol/L (8-16); CALCIUM 9.4 mg/dL (8.4-10.2); CREATININE, SERUM 0.57 mg/dL (0.57-1.11); POTASSIUM 3.6 mmol/L (3.5-5.1)
[2021-08-07] MEDS: ASPIRIN 81 MG CHEW TAB PO SCH (07:27)
[2021-08-07] MEDS: CLOPIDOGREL BISULFATE 75 MG TAB PO SCH (07:28)
[2021-08-07] MEDS: BALSAM PERU/CASTOR OIL 60 GM OINT...G. TP SCH (07:28)
[2021-08-07] MEDS: IRBESARTAN 150 MG TAB PO SCH (07:28)
[2021-08-07] MEDS: SODIUM CHLORIDE 1 GM TAB PO SCH ×2 (07:28→17:21)
[2021-08-07] MEDS: NYSTATIN 15 GM POWDER UD BTL TOP SCH (07:28)
[2021-08-07] MEDS: INSULIN REGULAR, HUMAN 100 UNIT/1 ML SQ SCH ×4 (07:29→21:56)
[2021-08-07] MEDS: HEPARIN SOD (PORCINE) 5,000 UNIT/ML VIAL SC SCH ×2 (09:00→21:56)
[2021-08-07] MEDS: ATORVASTATIN 40 MG TAB PO SCH (21:55)
[2021-08-07] MEDS: ESCITALOPRAM OXALATE 10 MG TAB PO SCH (21:55)
[2021-08-08] VITALS (25 sets, daily range): BP systolic 103–180; BP diastolic 45–107
[2021-08-08] MEDS: ALBUTEROL/IPRATROPIUM 3 ML NEB NEB SCH ×6 (02:20→23:25)
[2021-08-08] MEDS: METOPROLOL TARTRATE 25 MG TAB PO SCH ×3 (06:18→21:06)
[2021-08-08] MEDS: CEFTRIAXONE 1 GM in SODIUM CHLORIDE 0.9% 50ML 50 ML IV SCH ×2 (06:18→18:11)
[2021-08-08 06:26] LABS: BASOPHILS # (AUTO) 0.1 (0.0-0.1); BASOPHILS % 0.8 % (0.0-1.0); EOSINOPHILS # (AUTO) 0.5 (0.0-0.4); EOSINOPHILS % 5.1 % (0.0-6.0); HEMATOCRIT 33.3 % (34.2-44.1); HEMOGLOBIN 10.7 g/dL (12.0-16.0); LYMPHOCYTES # (AUTO) 1.7 (1.0-3.2); LYMPHOCYTES % 17.6 % (18.0-39.1); MEAN CORPUSCULAR HEMOGLOBIN 30.7 pg (28-32); MEAN CORPUSCULAR HGB CONC 32.1 g/dL (31-35); MEAN CORPUSCULAR VOLUME 95.7 fL (81-99); MONOCYTES # (AUTO) 1.5 (0.2-0.8); NEUTROPHILS # (AUTO) 5.9 (2.1-6.9); NEUTROPHILS % 61.1 % (38.7-80.0); PLATELET COUNT 380 x10e3/uL (140-360); RED BLOOD COUNT 3.48 x10e6/uL (3.6-5.1); RED CELL DISTRIBUTION WIDTH 13.5 % (11.7-14.4)
[2021-08-08 06:58] LABS: ANION GAP 14.8 mmol/L (8-16); CREATININE, SERUM 0.6 mg/dL (0.57-1.11); POTASSIUM 3.8 mmol/L (3.5-5.1)
[2021-08-08] MEDS: INSULIN REGULAR, HUMAN 100 UNIT/1 ML SQ SCH ×5 (07:30→21:21)
[2021-08-08] MEDS: NYSTATIN 15 GM POWDER UD BTL TOP SCH (07:54)
[2021-08-08] MEDS: BALSAM PERU/CASTOR OIL 60 GM OINT...G. TP SCH (07:54)
[2021-08-08] MEDS: CLOPIDOGREL BISULFATE 75 MG TAB PO SCH (10:07)
[2021-08-08] MEDS: HEPARIN SOD (PORCINE) 5,000 UNIT/ML VIAL SC SCH ×2 (10:07→20:11)
[2021-08-08] MEDS: ASPIRIN 81 MG CHEW TAB PO SCH (10:07)
[2021-08-08] MEDS: IRBESARTAN 150 MG TAB PO SCH (10:07)
[2021-08-08] MEDS: SODIUM CHLORIDE 1 GM TAB PO SCH ×2 (10:07→16:01)
[2021-08-08] MEDS ORDERED: LACTULOSE SYRUP 20 GM/30 ML UDC NG ONE (17:30)
[2021-08-08] MEDS: ESCITALOPRAM OXALATE 10 MG TAB PO SCH (20:11)
[2021-08-08] MEDS: ATORVASTATIN 40 MG TAB PO SCH (20:11)
[2021-08-08] MEDS: ACETAMINOPHEN 325 MG TAB PO PRN (21:25)
[2021-08-09] VITALS (18 sets, daily range): BP systolic 94–175; BP diastolic 52–89
[2021-08-09] MEDS: ALBUTEROL/IPRATROPIUM 3 ML NEB NEB SCH ×5 (03:45→20:05)
[2021-08-09] MEDS: CEFTRIAXONE 1 GM in SODIUM CHLORIDE 0.9% 50ML 50 ML IV SCH ×2 (06:04→17:04)
[2021-08-09] MEDS: METOPROLOL TARTRATE 25 MG TAB PO SCH ×3 (06:04→20:33)
[2021-08-09] MEDS: INSULIN REGULAR, HUMAN 100 UNIT/1 ML SQ SCH ×4 (07:16→20:34)
[2021-08-09] MEDS: IRBESARTAN 150 MG TAB PO SCH (09:00)
[2021-08-09] MEDS: BALSAM PERU/CASTOR OIL 60 GM OINT...G. TP SCH (10:08)
[2021-08-09] MEDS: NYSTATIN 15 GM POWDER UD BTL TOP SCH (10:08)
[2021-08-09] MEDS: HEPARIN SOD (PORCINE) 5,000 UNIT/ML VIAL SC SCH ×2 (10:08→20:33)
[2021-08-09] MEDS: CLOPIDOGREL BISULFATE 75 MG TAB PO SCH (11:15)
[2021-08-09] MEDS: ASPIRIN 81 MG CHEW TAB PO SCH (11:15)
[2021-08-09] MEDS: SODIUM CHLORIDE 1 GM TAB PO SCH ×2 (11:16→17:04)
[2021-08-09] MEDS ORDERED: SODIUM CHLORIDE 0.9% 250ML 250 ML ONE (15:24)
[2021-08-09] MEDS: ESCITALOPRAM OXALATE 10 MG TAB PO SCH (20:33)
[2021-08-09] MEDS: ATORVASTATIN 40 MG TAB PO SCH (20:33)
[2021-08-10] VITALS (20 sets, daily range): BP systolic 144–175; BP diastolic 49–78
[2021-08-10] MEDS: ALBUTEROL/IPRATROPIUM 3 ML NEB NEB SCH ×7 (01:00→20:10)
[2021-08-10] MEDS: METOPROLOL TARTRATE 25 MG TAB PO SCH ×3 (05:39→21:30)
[2021-08-10] MEDS: CEFTRIAXONE 1 GM in SODIUM CHLORIDE 0.9% 50ML 50 ML IV SCH (05:39)
[2021-08-10] MEDS: CLOPIDOGREL BISULFATE 75 MG TAB PO SCH (08:07)
[2021-08-10] MEDS: SODIUM CHLORIDE 1 GM TAB PO SCH ×2 (08:07→17:06)
[2021-08-10] MEDS: IRBESARTAN 150 MG TAB PO SCH (08:07)
[2021-08-10] MEDS: ASPIRIN 81 MG CHEW TAB PO SCH (08:07)
[2021-08-10] MEDS: BALSAM PERU/CASTOR OIL 60 GM OINT...G. TP SCH (08:07)
[2021-08-10] MEDS: INSULIN REGULAR, HUMAN 100 UNIT/1 ML SQ SCH ×4 (08:08→21:31)
[2021-08-10] MEDS: HEPARIN SOD (PORCINE) 5,000 UNIT/ML VIAL SC SCH ×2 (08:08→21:37)
[2021-08-10] MEDS: ESCITALOPRAM OXALATE 10 MG TAB PO SCH (21:30)
[2021-08-10] MEDS: ATORVASTATIN 40 MG TAB PO SCH (21:30)
[2021-08-11] VITALS (18 sets, daily range): BP systolic 100–169; BP diastolic 37–100
[2021-08-11] MEDS: ALBUTEROL/IPRATROPIUM 3 ML NEB NEB SCH ×6 (04:10→23:25)
[2021-08-11 06:02] LABS: BASOPHILS # (AUTO) 0.1 (0.0-0.1); BASOPHILS % 0.8 % (0.0-1.0); EOSINOPHILS # (AUTO) 0.3 (0.0-0.4); EOSINOPHILS % 2.7 % (0.0-6.0); HEMATOCRIT 35.3 % (34.2-44.1); LYMPHOCYTES # (AUTO) 2.7 (1.0-3.2); LYMPHOCYTES % 25.4 % (18.0-39.1); MEAN CORPUSCULAR HEMOGLOBIN 30.3 pg (28-32); MEAN CORPUSCULAR HGB CONC 31.2 g/dL (31-35); MEAN CORPUSCULAR VOLUME 97.2 fL (81-99); MONOCYTES # (AUTO) 1.5 (0.2-0.8); MONOCYTES % 14.3 % (4.4-11.3); NEUTROPHILS # (AUTO) 5.9 (2.1-6.9); NEUTROPHILS % 56.2 % (38.7-80.0); PLATELET COUNT 433 x10e3/uL (140-360); RED BLOOD COUNT 3.63 x10e6/uL (3.6-5.1); RED CELL DISTRIBUTION WIDTH 13.9 % (11.7-14.4)
[2021-08-11 06:37] LABS: ALBUMIN/GLOBULIN RATIO 0.8 (0.8-2.0); ANION GAP 15.5 mmol/L (8-16); CALCIUM 9.4 mg/dL (8.4-10.2); CREATININE, SERUM 0.62 mg/dL (0.57-1.11)
[2021-08-11 06:55] LABS: POTASSIUM 2.5 mmol/L (3.5-5.1)
[2021-08-11] MEDS: INSULIN REGULAR, HUMAN 100 UNIT/1 ML SQ SCH ×4 (06:58→20:42)
[2021-08-11] MEDS: ASPIRIN 81 MG CHEW TAB PO SCH (08:22)
[2021-08-11] MEDS: IRBESARTAN 150 MG TAB PO SCH (08:23)
[2021-08-11] MEDS: CLOPIDOGREL BISULFATE 75 MG TAB PO SCH (08:23)
[2021-08-11] MEDS: BALSAM PERU/CASTOR OIL 60 GM OINT...G. TP SCH (08:24)
[2021-08-11] MEDS: HEPARIN SOD (PORCINE) 5,000 UNIT/ML VIAL SC SCH (08:24)
[2021-08-11] MEDS: SODIUM CHLORIDE 1 GM TAB PO SCH ×2 (09:00→17:00)
[2021-08-11] MEDS ORDERED: POTASSIUM CHLORIDE 20MEQ/100ML 200 ML IV ONE (09:30)
[2021-08-11] MEDS: POTASSIUM CHLORIDE 20 MEQ TAB CR PO SCH ×2 (09:43→16:04)
[2021-08-11] MEDS ORDERED: DEXTROSE 5% 500ML 500 ML IV ONE (11:15)
[2021-08-11] MEDS: METOPROLOL TARTRATE 25 MG TAB PO SCH ×2 (14:00→22:00)
[2021-08-11] MEDS ORDERED: POTASSIUM CHLORIDE 20 MEQ TAB CR PO ONE (16:25)
[2021-08-11] MEDS: ESCITALOPRAM OXALATE 10 MG TAB PO SCH (20:36)
[2021-08-11] MEDS: ATORVASTATIN 40 MG TAB PO SCH (20:36)
[2021-08-12] VITALS (12 sets, daily range): BP systolic 131–166; BP diastolic 45–83
[2021-08-12 03:38] LABS: ALBUMIN 2.8 g/dL (3.5-5.0); ALBUMIN/GLOBULIN RATIO 0.7 (0.8-2.0); ANION GAP 17.3 mmol/L (8-16); CALCIUM 10.2 mg/dL (8.4-10.2); CREATININE, SERUM 0.72 mg/dL (0.57-1.11); POTASSIUM 3.3 mmol/L (3.5-5.1)
[2021-08-12] MEDS: METOPROLOL TARTRATE 25 MG TAB PO SCH ×2 (03:50→06:06)
[2021-08-12] MEDS ORDERED: POTASSIUM CHLORIDE 20MEQ/100ML 100 ML IV ONE ×2 (04:30→15:30)
[2021-08-12] MEDS ORDERED: SODIUM CHLORIDE 0.45% 1,000 ML IV ONE (04:45)
[2021-08-12] MEDS: ALBUTEROL/IPRATROPIUM 3 ML NEB NEB SCH ×2 (06:52→11:02)
[2021-08-12] MEDS: INSULIN REGULAR, HUMAN 100 UNIT/1 ML SQ SCH ×4 (07:30→21:25)
[2021-08-12] MEDS ORDERED: POTASSIUM CHLORIDE 20 MEQ TAB CR PO NR (09:30)
[2021-08-12] MEDS ORDERED: ALBUTEROL/IPRATROPIUM 3 ML NEB NEB PRN (11:30)
[2021-08-12] MEDS: ASPIRIN 81 MG CHEW TAB PO SCH (12:19)
[2021-08-12] MEDS: CLOPIDOGREL BISULFATE 75 MG TAB PO SCH (12:24)
[2021-08-12] MEDS: IRBESARTAN 150 MG TAB PO SCH (12:24)
[2021-08-12] MEDS: METOPROLOL TARTRATE 50 MG TAB PO SCH ×2 (12:24→17:31)
[2021-08-12] MEDS: BALSAM PERU/CASTOR OIL 60 GM OINT...G. TP SCH (14:17)
[2021-08-12] MEDS ORDERED: SODIUM CHLORIDE 0.9% 250ML 250 ML ONE (16:40)
[2021-08-12] MEDS: ESCITALOPRAM OXALATE 10 MG TAB PO SCH (21:23)
[2021-08-12] MEDS: ATORVASTATIN 40 MG TAB PO SCH (21:23)
[2021-08-13] VITALS: BP 150/66
[2021-08-13 05:53] LABS: BASOPHILS # (AUTO) 0.1 (0.0-0.1); BASOPHILS % 0.9 % (0.0-1.0); EOSINOPHILS # (AUTO) 0.4 (0.0-0.4); EOSINOPHILS % 2.6 % (0.0-6.0); HEMATOCRIT 34.9 % (34.2-44.1); HEMOGLOBIN 11.1 g/dL (12.0-16.0); LYMPHOCYTES # (AUTO) 2.8 (1.0-3.2); LYMPHOCYTES % 18.1 % (18.0-39.1); MEAN CORPUSCULAR HEMOGLOBIN 30.8 pg (28-32); MEAN CORPUSCULAR HGB CONC 31.8 g/dL (31-35); MEAN CORPUSCULAR VOLUME 96.9 fL (81-99); MONOCYTES # (AUTO) 2.1 (0.2-0.8); MONOCYTES % 13.6 % (4.4-11.3); NEUTROPHILS # (AUTO) 9.8 (2.1-6.9); PLATELET COUNT 337 x10e3/uL (140-360); RED CELL DISTRIBUTION WIDTH 14.6 % (11.7-14.4)
[2021-08-13 06:31] LABS: ALBUMIN 2.8 g/dL (3.5-5.0); ALBUMIN/GLOBULIN RATIO 0.8 (0.8-2.0); ANION GAP 12.9 mmol/L (8-16); CALCIUM 8.9 mg/dL (8.4-10.2); CREATININE, SERUM 0.63 mg/dL (0.57-1.11); POTASSIUM 3.9 mmol/L (3.5-5.1)
[2021-08-13] MEDS: INSULIN REGULAR, HUMAN 100 UNIT/1 ML SQ SCH ×4 (07:30→21:50)
[2021-08-13] MEDS ORDERED: SODIUM CHLORIDE 0.45% 1,000 ML IV ONE (08:30)
[2021-08-13] MEDS: ASPIRIN 81 MG CHEW TAB PO SCH (09:49)
[2021-08-13] MEDS: CLOPIDOGREL BISULFATE 75 MG TAB PO SCH (09:51)
[2021-08-13] MEDS: IRBESARTAN 150 MG TAB PO SCH (09:51)
[2021-08-13] MEDS: BALSAM PERU/CASTOR OIL 60 GM OINT...G. TP SCH (09:51)
[2021-08-13] MEDS: METOPROLOL TARTRATE 50 MG TAB PO SCH ×2 (09:52→17:36)
[2021-08-13] MEDS ORDERED: DEXTROSE 5% 1,000 ML IV ONE (17:15)
[2021-08-13 20:00] VITALS: BP 153/65
[2021-08-13 21:00] VITALS: BP 153/65
[2021-08-13] MEDS: ATORVASTATIN 40 MG TAB PO SCH (21:50)
[2021-08-13] MEDS: ESCITALOPRAM OXALATE 10 MG TAB PO SCH (21:50)
[2021-08-14] VITALS (9 sets, daily range): BP systolic 119–154; BP diastolic 46–83
[2021-08-14 06:12] LABS: BASOPHILS # (AUTO) 0.2 (0.0-0.1); BASOPHILS % 1.2 % (0.0-1.0); EOSINOPHILS # (AUTO) 0.5 (0.0-0.4); EOSINOPHILS % 3.8 % (0.0-6.0); HEMATOCRIT 35.4 % (34.2-44.1); HEMOGLOBIN 11.2 g/dL (12.0-16.0); LYMPHOCYTES # (AUTO) 2.8 (1.0-3.2); LYMPHOCYTES % 23.3 % (18.0-39.1); MEAN CORPUSCULAR HEMOGLOBIN 30.8 pg (28-32); MEAN CORPUSCULAR HGB CONC 31.6 g/dL (31-35); MEAN CORPUSCULAR VOLUME 97.3 fL (81-99); MONOCYTES # (AUTO) 1.8 (0.2-0.8); MONOCYTES % 14.9 % (4.4-11.3); NEUTROPHILS # (AUTO) 6.8 (2.1-6.9); NEUTROPHILS % 56.1 % (38.7-80.0); PLATELET COUNT 524 x10e3/uL (140-360); RED BLOOD COUNT 3.64 x10e6/uL (3.6-5.1); RED CELL DISTRIBUTION WIDTH 14.9 % (11.7-14.4)
[2021-08-14 06:28] LABS: ALBUMIN 2.6 g/dL (3.5-5.0); ALBUMIN/GLOBULIN RATIO 0.7 (0.8-2.0); CALCIUM 8.3 mg/dL (8.4-10.2); CREATININE, SERUM 0.65 mg/dL (0.57-1.11)
[2021-08-14] MEDS: ASPIRIN 81 MG CHEW TAB PO SCH (08:39)
[2021-08-14] MEDS: IRBESARTAN 150 MG TAB PO SCH (08:39)
[2021-08-14] MEDS: METOPROLOL TARTRATE 50 MG TAB PO SCH ×2 (08:39→17:43)
[2021-08-14] MEDS: CLOPIDOGREL BISULFATE 75 MG TAB PO SCH (08:39)
[2021-08-14] MEDS: BALSAM PERU/CASTOR OIL 60 GM OINT...G. TP SCH (09:06)
[2021-08-14] MEDS: INSULIN REGULAR, HUMAN 100 UNIT/1 ML SQ SCH ×4 (09:07→20:39)
[2021-08-14] MEDS ORDERED: ONDANSETRON HCL 4 MG ORAL DISINTEGRATING TAB PO PRN (10:00)
[2021-08-14] MEDS ORDERED: POTASSIUM CHLORIDE 20 MEQ TAB CR PO ONE (10:10)
[2021-08-14] MEDS: LACTATED RINGER'S 1,000 ML INJ SCH (14:54)
[2021-08-14] MEDS: DRONABINOL 2.5MG PO SCH (17:42)
[2021-08-14] MEDS: ESCITALOPRAM OXALATE 10 MG TAB PO SCH (21:10)
[2021-08-14] MEDS: ATORVASTATIN 40 MG TAB PO SCH (21:10)
[2021-08-15] VITALS (7 sets, daily range): BP systolic 128–153; BP diastolic 45–59
[2021-08-15] MEDS: INSULIN REGULAR, HUMAN 100 UNIT/1 ML SQ SCH ×4 (07:30→21:00)
[2021-08-15] MEDS: LACTATED RINGER'S 1,000 ML INJ SCH (08:45)
[2021-08-15] MEDS: DRONABINOL 2.5MG PO SCH ×2 (08:46→15:58)
[2021-08-15] MEDS: ASPIRIN 81 MG CHEW TAB PO SCH (08:46)
[2021-08-15] MEDS: IRBESARTAN 150 MG TAB PO SCH (08:47)
[2021-08-15] MEDS: CLOPIDOGREL BISULFATE 75 MG TAB PO SCH (08:48)
[2021-08-15] MEDS: METOPROLOL TARTRATE 50 MG TAB PO SCH ×2 (08:48→16:01)
[2021-08-15] MEDS: BALSAM PERU/CASTOR OIL 60 GM OINT...G. TP SCH (13:55)
[2021-08-15] MEDS: ESCITALOPRAM OXALATE 10 MG TAB PO SCH (20:26)
[2021-08-15] MEDS: ATORVASTATIN 40 MG TAB PO SCH (20:26)
[2021-08-16] VITALS (8 sets, daily range): BP systolic 100–159; BP diastolic 47–82
[2021-08-16] MEDS: ACETAMINOPHEN 325 MG TAB PO PRN (04:19)
[2021-08-16] MEDS: LACTATED RINGER'S 1,000 ML INJ SCH (05:14)
[2021-08-16] MEDS: DRONABINOL 2.5MG PO SCH ×2 (07:30→16:30)
[2021-08-16] MEDS: INSULIN REGULAR, HUMAN 100 UNIT/1 ML SQ SCH ×4 (07:30→20:59)
[2021-08-16] MEDS: METOPROLOL TARTRATE 50 MG TAB PO SCH ×2 (10:00→16:34)
[2021-08-16] MEDS: ASPIRIN 81 MG CHEW TAB PO SCH (10:00)
[2021-08-16] MEDS: IRBESARTAN 150 MG TAB PO SCH (10:00)
[2021-08-16] MEDS: CLOPIDOGREL BISULFATE 75 MG TAB PO SCH (10:00)
[2021-08-16] MEDS: BALSAM PERU/CASTOR OIL 60 GM OINT...G. TP SCH (10:00)
[2021-08-16] MEDS: ESCITALOPRAM OXALATE 10 MG TAB PO SCH (20:45)
[2021-08-16] MEDS: ATORVASTATIN 40 MG TAB PO SCH (20:45)
[2021-08-17] VITALS (8 sets, daily range): BP systolic 97–166; BP diastolic 62–98
[2021-08-17] MEDS: LACTATED RINGER'S 1,000 ML INJ SCH ×2 (01:30→20:21)
[2021-08-17 06:07] LABS: BASOPHILS # (AUTO) 0.1 (0.0-0.1); BASOPHILS % 1.1 % (0.0-1.0); EOSINOPHILS # (AUTO) 0.4 (0.0-0.4); EOSINOPHILS % 4.4 % (0.0-6.0); HEMATOCRIT 35.9 % (34.2-44.1); HEMOGLOBIN 11.5 g/dL (12.0-16.0); LYMPHOCYTES # (AUTO) 2.6 (1.0-3.2); LYMPHOCYTES % 26.6 % (18.0-39.1); MEAN CORPUSCULAR HEMOGLOBIN 30.7 pg (28-32); MEAN CORPUSCULAR VOLUME 95.7 fL (81-99); MONOCYTES # (AUTO) 1.6 (0.2-0.8); MONOCYTES % 16.4 % (4.4-11.3); NEUTROPHILS # (AUTO) 4.8 (2.1-6.9); NEUTROPHILS % 49.9 % (38.7-80.0); PLATELET COUNT 567 x10e3/uL (140-360); RED BLOOD COUNT 3.75 x10e6/uL (3.6-5.1)
[2021-08-17 06:26] LABS: ALBUMIN 2.7 g/dL (3.5-5.0); ALBUMIN/GLOBULIN RATIO 0.8 (0.8-2.0); ANION GAP 14.9 mmol/L (8-16); CALCIUM 8.2 mg/dL (8.4-10.2); CREATININE, SERUM 0.64 mg/dL (0.57-1.11)
[2021-08-17 06:31] LABS: POTASSIUM 2.9 mmol/L (3.5-5.1)
[2021-08-17] MEDS: INSULIN REGULAR, HUMAN 100 UNIT/1 ML SQ SCH ×4 (07:30→20:14)
[2021-08-17] MEDS ORDERED: KCL 20 MEQ PACKET/ ORAL SOLN PO ONE ×2 (07:30→09:00)
[2021-08-17] MEDS: ASPIRIN 81 MG CHEW TAB PO SCH (10:21)
[2021-08-17] MEDS: DRONABINOL 2.5MG PO SCH ×2 (10:21→17:11)
[2021-08-17] MEDS: METOPROLOL TARTRATE 50 MG TAB PO SCH ×2 (10:22→17:11)
[2021-08-17] MEDS: IRBESARTAN 150 MG TAB PO SCH (10:22)
[2021-08-17] MEDS: CLOPIDOGREL BISULFATE 75 MG TAB PO SCH (10:22)
[2021-08-17] MEDS: BALSAM PERU/CASTOR OIL 60 GM OINT...G. TP SCH (10:22)
[2021-08-17] MEDS: ATORVASTATIN 40 MG TAB PO SCH (20:15)
[2021-08-17] MEDS: ESCITALOPRAM OXALATE 10 MG TAB PO SCH (20:15)
[2021-08-18] VITALS (9 sets, daily range): BP systolic 116–155; BP diastolic 49–94
[2021-08-18] MEDS: INSULIN REGULAR, HUMAN 100 UNIT/1 ML SQ SCH ×4 (07:30→21:28)
[2021-08-18 09:22] LABS: ANION GAP 15.6 mmol/L (8-16); CALCIUM 7.9 mg/dL (8.4-10.2); CREATININE, SERUM 0.59 mg/dL (0.57-1.11); POTASSIUM 3.6 mmol/L (3.5-5.1)
[2021-08-18] MEDS: ASPIRIN 81 MG CHEW TAB PO SCH (10:19)
[2021-08-18] MEDS: DRONABINOL 2.5MG PO SCH ×2 (10:19→17:07)
[2021-08-18] MEDS: METOPROLOL TARTRATE 50 MG TAB PO SCH ×2 (10:20→17:08)
[2021-08-18] MEDS: CLOPIDOGREL BISULFATE 75 MG TAB PO SCH (10:20)
[2021-08-18] MEDS: BALSAM PERU/CASTOR OIL 60 GM OINT...G. TP SCH (10:20)
[2021-08-18] MEDS: IRBESARTAN 150 MG TAB PO SCH (10:20)
[2021-08-18] MEDS: DEXTROSE 5% 1,000 ML IV SCH (13:00)
[2021-08-18] MEDS: ESCITALOPRAM OXALATE 10 MG TAB PO SCH (21:14)
[2021-08-18] MEDS: ATORVASTATIN 40 MG TAB PO SCH (21:14)
[2021-08-19] VITALS (8 sets, daily range): BP systolic 80–149; BP diastolic 50–73
[2021-08-19] MEDS: DEXTROSE 5% 1,000 ML IV SCH ×2 (02:31→16:51)
[2021-08-19 06:17] LABS: ALBUMIN 2.5 g/dL (3.5-5.0); ALBUMIN/GLOBULIN RATIO 0.8 (0.8-2.0); ANION GAP 10.9 mmol/L (8-16); CALCIUM 7.8 mg/dL (8.4-10.2); CREATININE, SERUM 0.62 mg/dL (0.57-1.11)
[2021-08-19 06:20] LABS: POTASSIUM 2.9 mmol/L (3.5-5.1)
[2021-08-19] MEDS ORDERED: POTASSIUM CHLORIDE 20 MEQ TAB CR PO STA (06:26)
[2021-08-19] MEDS ORDERED: POTASSIUM CHLORIDE 20 MEQ TAB CR PO SCH (06:30)
[2021-08-19] MEDS ORDERED: POTASSIUM CHLORIDE 20MEQ/15ML UDC PO SCH ×2 (07:15→07:30)
[2021-08-19] MEDS: INSULIN REGULAR, HUMAN 100 UNIT/1 ML SQ SCH ×4 (08:00→21:00)
[2021-08-19] MEDS: METOPROLOL TARTRATE 50 MG TAB PO SCH ×2 (10:05→16:51)
[2021-08-19] MEDS: CLOPIDOGREL BISULFATE 75 MG TAB PO SCH (10:05)
[2021-08-19] MEDS: KCL 20 MEQ PACKET/ ORAL SOLN PO SCH ×2 (10:05→12:00)
[2021-08-19] MEDS: BALSAM PERU/CASTOR OIL 60 GM OINT...G. TP SCH (10:05)
[2021-08-19] MEDS: ASPIRIN 81 MG CHEW TAB PO SCH (10:06)
[2021-08-19] MEDS: IRBESARTAN 150 MG TAB PO SCH (10:06)
[2021-08-19] MEDS: DRONABINOL 2.5MG PO SCH ×2 (10:06→16:51)
[2021-08-19] MEDS ORDERED: POTASSIUM CHLORIDE 20MEQ/100ML 100 ML IV ONE (12:30)
[2021-08-19] MEDS: ATORVASTATIN 40 MG TAB PO SCH (21:00)
[2021-08-19] MEDS: ESCITALOPRAM OXALATE 10 MG TAB PO SCH (21:00)
[2021-08-20 01:01] VITALS: BP 129/72
[2021-08-20 03:19] VITALS: BP 122/50
[2021-08-20 05:46] LABS: BASOPHILS # (AUTO) 0.1 (0.0-0.1); BASOPHILS % 0.7 % (0.0-1.0); EOSINOPHILS # (AUTO) 0.4 (0.0-0.4); HEMATOCRIT 32.9 % (34.2-44.1); HEMOGLOBIN 10.5 g/dL (12.0-16.0); LYMPHOCYTES # (AUTO) 2.6 (1.0-3.2); LYMPHOCYTES % 25.2 % (18.0-39.1); MEAN CORPUSCULAR HEMOGLOBIN 30.9 pg (28-32); MEAN CORPUSCULAR HGB CONC 31.9 g/dL (31-35); MEAN CORPUSCULAR VOLUME 96.8 fL (81-99); MONOCYTES # (AUTO) 1.4 (0.2-0.8); MONOCYTES % 13.7 % (4.4-11.3); NEUTROPHILS # (AUTO) 5.8 (2.1-6.9); NEUTROPHILS % 55.3 % (38.7-80.0); PLATELET COUNT 459 x10e3/uL (140-360); RED CELL DISTRIBUTION WIDTH 14.9 % (11.7-14.4)
[2021-08-20] MEDS: DEXTROSE 5% 1,000 ML IV SCH (06:26)
[2021-08-20 06:38] LABS: ANION GAP 9.5 mmol/L (8-16); CALCIUM 7.9 mg/dL (8.4-10.2); CREATININE, SERUM 0.57 mg/dL (0.57-1.11); POTASSIUM 3.5 mmol/L (3.5-5.1)
[2021-08-20] MEDS: INSULIN REGULAR, HUMAN 100 UNIT/1 ML SQ SCH ×2 (07:30→11:30)
[2021-08-20 08:12] VITALS: BP 116/67
[2021-08-20 08:49] VITALS: BP 116/67
[2021-08-20] MEDS: DRONABINOL 2.5MG PO SCH ×2 (09:13→17:11)
[2021-08-20] MEDS: METOPROLOL TARTRATE 50 MG TAB PO SCH ×2 (09:13→17:11)
[2021-08-20] MEDS: CLOPIDOGREL BISULFATE 75 MG TAB PO SCH (09:13)
[2021-08-20] MEDS: ASPIRIN 81 MG CHEW TAB PO SCH (09:13)
[2021-08-20] MEDS: IRBESARTAN 150 MG TAB PO SCH (09:13)
[2021-08-20 11:35] VITALS: BP 140/78
[2021-08-20] MEDS: BALSAM PERU/CASTOR OIL 60 GM OINT...G. TP SCH (13:13)
[2021-08-20 15:52] VITALS: BP 121/53
== END 2021-08-20 20:37 | DRG 193 ==
LOC: ER 14:33 → ERHOLD 16:00 → ICU 17:21 → MED/SURG3 08-12 14:34
PROVIDERS: ADMIT Internal Medicine; ATTEND Internal Medicine
PROC: 02HV33Z Insertion of Infusion Device into Superior Vena Cava, Percutaneous Approach (ICD-10-PCS; principal; 2021-08-01)
PROC: 02HV33Z Insertion of Infusion Device into Superior Vena Cava, Percutaneous Approach (ICD-10-PCS; 2021-08-16)
DX: J18.9 Pneumonia, unspecified organism (principal); G93.41 Metabolic encephalopathy; E22.2 Syndrome of inappropriate secretion of antidiuretic hormone; E87.2 Acidosis; I25.10 Atherosclerotic heart disease of native coronary artery without angina pectoris; F03.90 Unspecified dementia, unspecified severity, without behavioral disturbance, psychotic disturbance, mood disturbance, and anxiety; F41.9 Anxiety disorder, unspecified; E11.9 Type 2 diabetes mellitus without complications; E87.6 Hypokalemia; D64.9 Anemia, unspecified; Z95.5 Presence of coronary angioplasty implant and graft; R29.6 Repeated falls; R62.7 Adult failure to thrive; Z68.26 Body mass index [BMI] 26.0-26.9, adult; I25.2 Old myocardial infarction; I44.7 Left bundle-branch block, unspecified; F43.23 Adjustment disorder with mixed anxiety and depressed mood; R31.9 Hematuria, unspecified; R00.0 Tachycardia, unspecified; E86.0 Dehydration; Z20.822 Contact with and (suspected) exposure to COVID-19
CPT/HCPCS: 36415; 36569; 36600; 70450; 70486; 71045; 71260; 72125; 74018; 74177; 80048; 80053; 81001; 82140; 82550; 82553; 82805; 82948; 83605; 83735; 83880; 83930; 83935; 84295; 84300; 84443; 84484; 85025; 85610; 85730; 86850; 86900; 87040; 93005; 93306; 94640; 94799; 96372; 97139; 99251; 99284; J0456; J0696; J1644; J1817; J2060; J3480; J3486; J7030; J7050; J7060; J7070; J7121; Q9967; U0002